=== PATIENT | male | born 1960 | race Two or more races ===

== ENCOUNTER 2016-10-24 05:46 | Observation (INO) | payer SELFPAY ==
[~2016-10-24 05:46] MED LIST: AMLODIPINE BESYL5 MG PO; LEVOTHYROXINE150 MC3 PO; LISINOPRIL-HCT1 EAC2 PO; TAMIFLU75 MG/CAP NG; XTANDI40 M1 PO; [UNRECOGNIZED DRUG - OTHER] PO
[2016-10-24] MEDS ORDERED: ULTRAM50 M1 PO (06:14)
[2016-10-24] MEDS ORDERED: ZESTORETIC 20-1 EAC4 PO (06:15)
[2016-10-24] MEDS ORDERED: PROSTATE MED (06:17)
[2016-10-24 06:34] LABS: BASO % 0.8 % (0-2); BASO ABSOLUTE COUNT 0.1 tho/cmm (0.0-0.2); EOS % 2.4 % (0-7); EOSINOPHIL ABSOLUTE COUNT 0.2 tho/cmm (0.0-0.7); HCT-HEMATOCRIT 36.3 % (36.0-53.5); HGB-HEMOGLOBIN 12.2 gm/dl (13.5-17.0); IMMATURE GRANULOCYTES ABSOLUTE 0.01 tho/cmm (0-0.03); IMMATURE GRANULOCYTES PERCENT 0.2 % (0-0.3); LYMPH % 45.4 % (20-45); MCH (MEAN CORPUSCULAR HGB) 27.6 pg (28.0-32.0); MCHC MEAN CORPUSCULAR HGB CONC 33.6 % (32.0-36.0); MCV (MEAN CELL VOLUME) 82.1 fl (82.0-96.0); MONO % 6.8 % (0-12); MONOCYTE ABSOLUTE COUNT 0.5 tho/cmm (0.0-1.2); NEUTROPHILS % 44.4 % (40-80); PLATELET COUNT 170 tho/cmm (150-450); RED BLOOD COUNT 4.42 mil/cmm (4.40-5.70); RED CELL DISTRIBUTION WIDTH 14.8 % (12.4-16.4); WHITE BLOOD COUNT 6.6 tho/cmm (4.0-10.0)
[2016-10-24 06:40] LABS: INR 0.9 INR (0.9-1.1); PROTHROMBIN TIME 10.8 SECONDS (9.0-13.6)
[2016-10-24 07:00] LABS: ALBUMIN 3.5 g/dl (3.5-5.0); ALKALINE PHOSPHATASE 53 U/L (33-138); ALT/SGPT 22 U/L (12-78); ANION GAP 13 mmol/L (0-20); AST/SGOT 17 U/L (10-40); BILIRUBIN,TOTAL 0.3 mg/dl (0.0-1.5); BLOOD UREA NITROGEN 12 mg/dl (6-24); CALCIUM 8.4 mg/dl (8.5-10.5); CARBON DIOXIDE-VENOUS 26 mmol/L (22-32); CHLORIDE 105 mmol/l (96-110); CREATININE 1.15 mg/dl (0.60-1.30); GLUCOSE 188 mg/dL (70-110); POTASSIUM 3.1 mmol/L (3.7-5.1); SODIUM 141 mmol/L (135-145); eGFR VALUE FOR BLACK 81 mL/Min
[2016-10-24] MEDS ORDERED: FLOMAX0.4 M1 PO (07:27)
[2016-10-24 08:46] LABS: URINE BILIRUBIN NEGATIVE (NEG); URINE BLOOD NEGATIVE (NEG); URINE GLUCOSE (UA) NEGATIVE (NEG); URINE KETONE NEGATIVE (NEG); URINE LEUKOCYTE ESTERASE NEGATIVE (NEG); URINE NITRITE NEGATIVE (NEG); URINE PROTEIN NEGATIVE (NEG)
[2016-10-24 08:47] LABS: URINE APPEARANCE CLEAR; URINE COLOR YELLOW
[2016-10-24 09:06] LABS: MAGNESIUM 2.1 mg/dl (1.8-2.6)
[2016-10-24] MEDS ORDERED: SYNTHROID175 MC1 PO (13:05)
[2016-10-24] MEDS ORDERED: XGEVA120 MG/1.1 SC (13:38)
[2016-10-24 15:00] LABS: PROCALCITONIN <0.05 ng/ml (0.05-0.09)
[2017-02-01] MEDS ORDERED: OXYBUTYNIN CHLO10 M1 PO (10:00)
[2017-02-01] MEDS ORDERED: NEULASTA6 MG/0.6 M SC (10:01)
[2017-02-01] MEDS ORDERED: TAXOTERE IV (10:02)
[2017-02-01] MEDS ORDERED: DEXAMETHAS10 MG/1 M1 IV (10:35)
[2017-02-01] MEDS ORDERED: GRANISETRON IV (10:36)
[2017-02-01] MEDS ORDERED: FAMOTIDINE IV (10:36)
[2017-02-02] MEDS ORDERED: HYDROCODON-ACE1 EA16 PO (10:47)
[2017-02-02] MEDS ORDERED: LEVAQUIN750 M1 PO (10:48)
[2017-02-02] MEDS ORDERED: FLAGYL500 M1 PO (10:49)
[2017-02-03] MEDS ORDERED: CARDURA2 M2 PO (10:35)
[2017-02-04] MEDS ORDERED: LEVAQUIN750 M1 PO (09:39)
[2017-02-04] MEDS ORDERED: FLAGYL500 M1 PO (09:40)
[2017-02-04] MEDS ORDERED: MIRALAX17 G2 PO (09:53)
[2017-02-04] MEDS ORDERED: COLACE100 M1 PO (09:53)
== END 2016-10-24 17:00 ==
LOC: EDMED 05:46 → EMR2 08:34 → CAR1 12:48
PROVIDERS: Emergency Medicine; Family Medicine; ADMIT Hospitalist
DX: K52.9 Noninfective gastroenteritis and colitis, unspecified (principal); R55 Syncope and collapse; R11.2 Nausea with vomiting, unspecified; I95.9 Hypotension, unspecified; R74.0 Nonspecific elevation of levels of transaminase and lactic acid dehydrogenase [LDH]; C61 Malignant neoplasm of prostate; C79.51 Secondary malignant neoplasm of bone; I11.9 Hypertensive heart disease without heart failure; E03.9 Hypothyroidism, unspecified; N40.0 Benign prostatic hyperplasia without lower urinary tract symptoms; R57.1 Hypovolemic shock; E87.6 Hypokalemia; Z79.899 Other long term (current) drug therapy; Z90.79 Acquired absence of other genital organ(s); Z98.890 Other specified postprocedural states
CPT/HCPCS: G0378; J2543; J3370; J7030